=== PATIENT | female | born 1945 | race Caucasian/White ===

== ENCOUNTER 2017-12-09 10:40 | Emergency (ER) | payer MEDICARE, OTHER, SELFPAY | END 2017-12-09 14:30 | disposition left against medical advice (07) | PROVIDERS: Emergency Provider Emergency Medicine; PCP Internal Medicine; Visit Provider Emergency Medicine | DX: I48.0 Paroxysmal atrial fibrillation (principal); R74.8 Abnormal levels of other serum enzymes | CPT/HCPCS: 36415; 71010; 71045; 80053; 82962; 84484; 85025; 85610; 85730; 93005; 93010; 96361; 96374; 96375; 99058; 99285; J2405 ==

== ENCOUNTER → 2018-01-06 14:18 | Outpatient (CLI) | payer MEDICARE, OTHER, SELFPAY ==
--- NOTE | 2018-01-08 07:47 | PM.PFT.1 ---
Pulmonary Function Test Referral & Results Date Patient Seen: 01/06/18 Requesting provider: Mohan Hernández Results: The spirometry demonstrates an FVC of 2.11 L which is 65% of predicted. The FEV1 was measured at 1.48 L which is 61% of predicted. The FEV1/FVC ratio was 70 which is 92% of predicted. Following the administration of bronchodilator there was a 58% improvement in FEF 25-75%. Lung volumes show an SVC of 2.26 L which is 74% of predicted. The diffusing capacity was measured at 18.2 for which is 67% of predicted. No hemoglobin value was provided, so no correction for potential anemia could be made, if appropriate. The maximum voluntary ventilation was reduced. Interpretation: This study demonstrates moderate obstructive lung disease with limited evidence of benefit following bronchodilator administration, particularly in small airway flow as demonstrated by the improvement in the FEF 25-75% There is also mild restrictive lung disease present There is also a moderate reduction in diffusing capacity suggesting disease at the capillary alveolar level
--- NOTE | 2018-01-08 07:49 | PM.PFT.1 ---
Pulmonary Function Test Referral & Results Date Patient Seen: 01/06/18 Requesting provider: Roscoe Pena Results: The spirometry demonstrates an FVC of 1.80 L which is 79% of predicted. The FEV1 was measured at 1.37 L which is 81% of predicted. The FEV1/FVC ratio was 76 which is 102% of predicted. Following the administration of bronchodilator there was a 55% improvement in FEF 25-75%. Lung volumes show an SVC of 1.96 L which is 82% of predicted. The diffusing capacity was measured at 16.65 which is 82% of predicted. No hemoglobin value was provided, so no correction for potential anemia could be made, if appropriate. The maximum voluntary ventilation was reduced. Interpretation: This study demonstrates mild obstructive lung disease with some limited evidence of benefit following bronchodilator, particularly in small airway flow based on improvement in FEF 25-75% There is a slight reduction in lung volumes suggesting mild restrictive lung disease There is also a slight reduction in diffusing capacity suggesting some element of disease at the capillary alveolar level Compared to PFTs performed in November 2014, spirometry is essentially unchanged although there is a minimal reduction in FEV1. Diffusing capacity is also essentially unchanged
== END ==
PROVIDERS: PCP Internal Medicine; Visit Provider Internal Medicine Cardiovascular Disease
DX: I48.0 Paroxysmal atrial fibrillation (principal)
CPT/HCPCS: 94010; 94060; 94726; 94729

== ENCOUNTER → 2018-06-30 12:32 | Outpatient (CLI) | payer MEDICARE, OTHER, SELFPAY ==
--- NOTE | 2018-07-03 11:04 | PM.PFT.1 ---
Pulmonary Function Test Referral & Results Date Patient Seen: 06/30/18 Requesting provider: Mohan Hernández Indication: Amiodarone therapy Results: The spirometry demonstrates an FVC of 2.71 L which is 85% of predicted. The FEV1 was measured at 1.94 L which is 80% of predicted. The FEV1/FVC ratio was 72 which is 94% of predicted. Following the administration of bronchodilator there was no appreciable change. Lung volumes show an SVC of 2.9 L which is 95% of predicted. The diffusing capacity was measured at 15.60 which is 57% of predicted. No hemoglobin value was provided, so no correction for potential anemia could be made, if appropriate. The maximum voluntary ventilation was reduced Interpretation: This study demonstrates perhaps mild obstructive lung disease based on slight reduction in FEV1 and shape of flow volume loop with slight concavity. There is moderate reduction in diffusing capacity suggesting element of disease at the capillary alveolar level Compared to PFTs performed in December 2017, spirometry is improved as FEV1 was previously at 61% predicted currently 80% of predicted. However diffusing capacity has declined currently 57% predicted where previously it was at 67% of predicted. Clinical correlation suggested
== END ==
PROVIDERS: PCP Internal Medicine; Visit Provider Internal Medicine Cardiovascular Disease
DX: Z79.899 Other long term (current) drug therapy (principal); I50.22 Chronic systolic (congestive) heart failure
CPT/HCPCS: 94060; 94726; 94729

== ENCOUNTER → 2019-02-08 14:42 | Outpatient (CLI) | payer MEDICARE, OTHER, SELFPAY ==
--- NOTE | 2019-02-08 | DI.MG.S_ITS ---
BILATERAL DIGITAL SCREENING MAMMOGRAM 3D/2D WITH CAD: 02/08/2019 Comparison is made to exams dated: 01/27/2017 mammogram, 10/25/2014 mammogram - [facility], and 10/11/2012 mammogram - [facility]. The tissue of both breasts is heterogeneously dense. This may lower the sensitivity of mammography. Current study was also evaluated with a Computer Aided Detection (CAD) system. There are benign vascular calcifications in both breasts. No significant masses, calcifications, or other findings are seen in either breast. There has been no significant interval change. IMPRESSION: There is no mammographic evidence of malignancy. A 1 year screening mammogram is recommended. This exam was interpreted at Station ID: [id number]. NOTE: For mammograms, a report in lay terms will be sent to the patient. Approximately 15% of breast malignancies will not be visualized mammographically. In the management of a palpable breast mass, a negative mammogram must not discourage biopsy of a clinically suspicious lesion. Electronically Signed By: Pancho pablo/anne marie:02/09/2019 11:57:50 letter sent: Normal Exam ACR BI-RADS Category 2: Benign Finding(s) 3342F
== END ==
PROVIDERS: PCP Internal Medicine; Visit Provider Internal Medicine
DX: Z12.31 Encounter for screening mammogram for malignant neoplasm of breast (principal)
CPT/HCPCS: 77063; 77067

== ENCOUNTER → 2019-05-17 10:46 | Outpatient (CLI) | payer MEDICARE, OTHER, SELFPAY ==
[2019-05-17 13:59] LABS: Thyroid Stimulating Hormone 5.73 uIU/mL (0.47-4.68)
--- NOTE | 2019-05-23 14:14 | PM.PFT.1 ---
Pulmonary Function Test Referral & Results Date Patient Seen: 05/17/19 Requesting provider: Mohan Hernández Results: The spirometry demonstrates an FVC of 1.94 L which is 61% of predicted. The FEV1 was measured at 1.39 L which is 50% of predicted. The FEV1/FVC ratio was 72 which is 95% of predicted. Following the administration of bronchodilator there was no appreciable change. Lung volumes show an SVC of 2.14 L which is 71% of predicted. The diffusing capacity was measured at 12.94 which is 48% of predicted. No hemoglobin value was provided, so no correction for potential anemia could be made, if appropriate. The maximum voluntary ventilation was severely reduced Interpretation: This study demonstrates moderate obstructive lung disease without evidence of benefit following bronchodilator administration There may also be mild restrictive lung disease based on reduction SVC There is more significant disease capillary alveolar level based on reduction in diffusing capacity Compared to PFTs performed in June 2018, spirometry is significantly different with evidence of worsening chronic lung disease. Diffusing capacity is also slightly worse Clinical correlation suggested
== END ==
PROVIDERS: PCP Internal Medicine; Visit Provider Internal Medicine Cardiovascular Disease
DX: Z51.81 Encounter for therapeutic drug level monitoring (principal); Z79.899 Other long term (current) drug therapy; R06.02 Shortness of breath; J44.9 Chronic obstructive pulmonary disease, unspecified
CPT/HCPCS: 36415; 84443; 94060; 94726; 94729